=== PATIENT | male | born 1975 | race Hispanic/Latino ===

== ENCOUNTER 2017-02-04 18:19 | Observation (INO) | payer SELFPAY ==
[2017-02-04] MEDS ORDERED: Multivitamin (MVI) 10 ML, Thiamine 100 MG, Folic Acid 1 MG in Sodium Chloride 0.9% 1,00... IV STA (19:51)
--- NOTE | 2017-02-04 20:12 | C.PDOC ---
History Of Present Illness 41 y/o male brought to ed by friend requesting ETOH detox. As per friend patient may have had a seizure yesterday and reports patient has been drinking for a long time now. Patient denies fever, weakness, n/v/d or any other complaints at this time. He has been through several prior detox programs without success. Time Seen by Provider: 02/04/17 19:37 Chief Complaint (Nursing): Substance Abuse History Per: Patient History/Exam Limitations: no limitations Onset/Duration Of Symptoms: Days Current Symptoms Are (Timing): Still Present Modifying Factor(s): Alcohol Additional History Per: Friend Past Medical History Reviewed: Historical Data, Nursing Documentation, Vital Signs Vital Signs: Last Vital Signs Temp 97.8 F 02/04/17 23:56 Pulse 86 02/04/17 23:56 Resp 16 02/04/17 23:56 BP 128/74 02/04/17 23:56 Pulse Ox 95 02/04/17 23:56 Family History: States: No Known Family Hx - Social History Hx Alcohol Use: Yes Hx Substance Use: Yes - Immunization History Hx Tetanus Toxoid Vaccination: No Hx Influenza Vaccination: No Hx Pneumococcal Vaccination: No Review Of Systems Except As Marked, All Systems Reviewed And Found Negative. Constitutional: Negative for: Fever, Chills Gastrointestinal: Negative for: Nausea, Vomiting, Diarrhea Skin: Negative for: Rash Neurological: Negative for: Weakness Physical Exam - Physical Exam Appears: Other (Intoxicated) Skin: Warm Head: Normacephalic Oral Mucosa: Moist Chest: Symmetrical Cardiovascular: Rhythm Regular Respiratory: Normal Breath Sounds, No Rhonchi, No Stridor, No Wheezing Gastrointestinal/Abdominal: Soft, No Tenderness, No Guarding, No Rebound Extremity: Normal ROM, Capillary Refill (<2 seconds) Neurological/Psych: Oriented x3, Normal Speech ED Course And Treatment - Laboratory Results Result Diagrams: 02/04/17 20:33 02/04/17 20:13 Lab Interpretation: Abnormal (LFTs mildly elevated. WBC 11.9 with left shift. ETOH 349) O2 Sat by Pulse Oximetry: 95 (RA) Pulse Ox Interpretation: Normal Progress Note: Patient continues to rest quietly. IV fluids and MVI infusing. Disposition - Disposition Disposition Time: 00:52 Condition: STABLE Forms: [employer] (Vietnamese) - Clinical Impression Clinical Impression: Alcohol abuse - Scribe Statement The provider has reviewed the documentation as recorded by the Felixibshay Garner All medical record entries made by the Felixibshay were at my direction and personally dictated by me. I have reviewed the chart and agree that the record accurately reflects my personal performance of the history, physical exam, medical decision making, and the department course for this patient. I have also personally directed, reviewed, and agree with the discharge instructions and disposition. Physician Patient Turnover Patient Signed Over To: Walker Lopez Handoff Comments: pending sobriety or withdrawal
[2017-02-04 20:18] LABS: URINE BILIRUBIN NEGATIVE (NEGATIVE); URINE BLOOD 1+ (NEGATIVE); URINE COLOR Straw (YELLOW); URINE GLUCOSE (UA) NORMAL (Normal); URINE KETONE TRACE mg/dL (NEGATIVE); URINE LEUKOCYTE ESTERASE NEG Leu/uL (Negative); URINE PROTEIN NEGATIVE (NEGATIVE); URINE UROBILINOGEN NORMAL mg/dL (0.2-1.0); WBC URINE < 1 /hpf (0-5)
[2017-02-04 20:24] LABS: CHLORIDE 92 mmol/L (98-107); SODIUM 142 mmol/L (132-148)
[2017-02-04 20:25] LABS: POTASSIUM 4.9 mmol/L (3.6-5.2)
[2017-02-04 20:26] LABS: GFR AFRICAN-AMERICAN > 60
[2017-02-04 20:27] LABS: ALB/GLOB RATIO 1.4 (1.0-2.1); ALKALINE PHOSPHATASE 74 U/L (38-126); ALT/SGPT 74 U/L (21-72); AST/SGOT 94 U/L (17-59); BILIRUBIN,TOTAL 1.4 mg/dL (0.2-1.3); BLOOD UREA NITROGEN 17 mg/dL (9-20); CARBON DIOXIDE 27 mmol/L (22-30); GLUCOSE,RANDOM 79 mg/dL (75-110); TOTAL PROTEIN 8.7 g/dL (6.3-8.3)
[2017-02-04 20:36] LABS: BASO # 0.1 K/uL (0.0-0.2); BASO % 0.6 % (0.0-2.0); EOS # 0.1 K/uL (0.0-0.7); EOS % 0.4 % (0.0-4.0); HEMATOCRIT 50.5 % (35.0-51.0); LYMPH # 1.6 K/uL (1.0-4.3); MEAN CELL VOLUME 92.7 fL (80.0-94.0); MEAN CORPUSCULAR HEMOGLOBIN 31.8 pg (27.0-31.0); MEAN CORPUSCULAR HGB CONC 34.4 g/dL (33.0-37.0); MEAN PLATELET VOLUME 6.6 fL (7.2-11.7); MONO # 0.4 K/uL (0.0-0.8); MONO % 3.5 % (0.0-10.0); WHITE BLOOD COUNT 11.9 K/uL (4.8-10.8)
[2017-02-04 20:43] LABS: ALCOHOL SERUM 349 mg/dl (0-10)
[2017-02-05 04:53] VITALS: O2SAT 97
[2017-02-05 07:21] VITALS: BP 136/90; PULSE 113; RESP 18; TEMP 98
== END 2017-02-05 07:25 | disposition home or self-care (01) ==
LOC: C.ER 18:19 → C.9OBSV 23:47
PROVIDERS: ADMIT Emergency Medicine; ATTEND Emergency Medicine
DX: F10.120 Alcohol abuse with intoxication, uncomplicated (principal); Y90.8 Blood alcohol level of 240 mg/100 ml or more
CPT/HCPCS: 80053; 81001; 85025; 96360; 96361; 99284; G0378; G0480; J3411; J7040